=== PATIENT | female | born 1960 | race Caucasian/White ===

== ENCOUNTER 2019-02-11 07:12 | Emergency (ER) | payer OTHER ==
[~2019-02-11] VITALS: Wt 85.2 kg
[~2019-02-11 07:12] MED LIST: [UNRECOGNIZED DRUG - OTHER] PO
[2019-02-11 07:13] VITALS: BP 157/85; PULSE 85; RESP 18
--- NOTE | 2019-02-11 07:51 | ERD ---
ER Documentation Chief Complaint Chief Complaint SORE THROAT X 3 DAYS HPI Patient is a 58-year-old female with no medical problems who presents with sore throat. She has had sore throat for the past 3 days. The patient has cough but no fever. The patient tried Robitussin without much help. Her primary doctor is Dr. Jerrell Mcguire. ROS All systems reviewed and are negative except as per history of present illness. Medications Home Meds Active Scripts Benzonatate* (Tessalon Perle*) 100 Mg Capsule, 100 MG PO Q8H PRN for COUGH, #30 CAP Prov:TRACI JONES MD 02/11/19 Ibuprofen* (Motrin*) 600 Mg Tab, 600 MG PO Q6H PRN for PAIN AND OR ELEVATED TEMP, #30 TAB Prov:TRACI JONES MD 02/11/19 Hydrocodone/Acetaminophen (Hydrocodon-Acetaminoph 7.5-325) 1 Each Tablet, 1 TAB PO Q6H PRN for MODERATE PAIN LEVEL 4-6 for 14 Days, TAB Prov:TIFFANIE GORDON 11/12/18 Aspirin (Aspirin Lite-Coat) 325 Mg Tablet, 325 MG PO BID for 30 Days, TAB Prov:TIFFANIE GORDON 11/12/18 Reported Medications Omeprazole* (Omeprazole*) 20 Mg Capsule., 20 MG PO DAILY, #30 CAP 11/08/18 Allergies Allergies: Coded Allergies: ciprofloxacin (Verified Allergy, Intermediate, RASHES, 11/08/18) PMhx/Soc History of Surgery: Yes (CHOLEY, CECTION) Anesthesia Reaction: No Hx Neurological Disorder: No Hx Respiratory Disorders: No Hx Cardiac Disorders: No Hx Psychiatric Problems: No Hx Miscellaneous Medical Probl: No (OA, obesity) Hx Alcohol Use: No Hx Substance Use: No Hx Tobacco Use: No FmHx Family History: No diabetes Physical Exam Vitals Vital Signs Date Temp Pulse Resp B/P (MAP) Pulse Ox O2 O2 Flow FiO2 Time Delivery Rate 02/11/19 98.3 85 18 157/85 99 07:13 (109) Physical Exam Const: No acute distress Head: Atraumatic Eyes: Normal Conjunctiva ENT: Erythema to the oropharynx without signs of bacterial infection Neck: Full range of motion. No meningismus. Resp: Clear to auscultation bilaterally Cardio: Regular rate and rhythm, no murmurs Abd: Soft, non tender, non distended. Normal bowel sounds Skin: No petechiae or rashes Back: No midline or flank tenderness Ext: No cyanosis, or edema Neur: Awake and alert Psych: Normal Mood and Affect Procedures/MDM Patient is a 58-year-old female with no medical problems who presents with a sore throat and cough. I believe her symptoms are consistent with an upper respiratory infection from a viral cause. I do not believe she requires antibiotics at this time. The patient will be given a prescription for ibuprofen and Tessalon Perles. She can return for any worsening symptoms. I doubt bacterial pharyngitis, right pharyngeal abscess, or epiglottitis. Departure Diagnosis: Primary Impression: Sore throat Condition: Fair Patient Instructions: Self-Care for Sore Throats [facility] Usted se bradley hecho un examen mdico de control que le indica que no est en mildred condicin que requiera tratamiento urgente en el Departamento de Emergencia. Un estudio ms profundo y el tratamiento de young condicin pueden esperar sin ningn riesgo hasta que usted sea atendida/o en el consultorio de young mdico o mildred clnica. Es responsabilidad suya arreglar mildred alexandru para el seguimiento del radha. MANEJO DE CONDICIONES NO URGENTES EN EL FUTURO 1) Si usted tiene un mdico de atencin primaria: Usted debera llamar a young mdico de atencin primaria antes de venir al departamento de emergencia. Despus de las horas de consultorio, young doctor o young asociado/a est disponible por telfono. El mdico o enfermero de suni en el servicio telefnico puede asesorarle por deepa medio para atender el problema, o radha contrario se puede programar mildred alexandru. 2) Si usted no tiene un mdico de atencin primaria: Llame al mdico o clnica de referencia que aparece abajo logan las horas de consultorio para hacer mildred alexandru para que le vean. CLINICAS: [facility] [phone] [facility] [phone] [facility] [phone] [facility] [phone] [place] [phone] [place] [phone] Additional Instructions: Call your primary care doctor TOMORROW for an appointment during the next 1-2 days.See the doctor sooner or return here if your condition worsens before your appointment time. TRACI JONES MD Feb 11, 2019 07:51
== END 2019-02-11 07:56 | disposition home or self-care (01) ==
LOC: FTE 07:12 → MERGE 07:12 → FTE 07:56
DX: J02.9 Acute pharyngitis, unspecified (principal); Z79.82 Long term (current) use of aspirin
CPT/HCPCS: 99283